=== PATIENT | male | born 1955 ===

== ENCOUNTER 2019-01-19 21:38 | Emergency (ER) | payer OTHER ==
[~2019-01-19] VITALS: Ht 170.2 cm; Wt 68.0 kg
--- NOTE | 2019-01-19 21:55 | NUR ---
ED Nurse Note: Pt from home, AAOx4, ambulatory, c/o SOB for 1.5 months. Pt stated he has used a friend's inhaler but symptoms got worse. VSS. Will assess and carry out ERMD's orders.
[2019-01-19 22:00] VITALS: BP 169/121
--- NOTE | 2019-01-19 22:23 | Emergency Room Report ---
History of Present Illness General Chief Complaint: Dyspnea/Respdistress Source: Patient Present Illness HPI Patient is a 63-year-old male presented after increased difficulty with breathing. Patient gradual onset of symptoms. He reports having increased shortness of breath. He had been a smoker and quit 10 days ago. He had increased non productive cough. He denies any leg pain or swelling. He had not been having any fever. He had been taking an inhaler without any relief. Patient does not see a primary care regularly. Allergies: Coded Allergies: No Known Allergies (Unverified , 01/19/19) Patient History Past Medical History: see triage record Reviewed Nursing Documentation: PMH: Agreed; PSxH: Agreed Nursing Documentation-PMH Past Medical History: No Stated History Review of Systems All Other Systems: negative except mentioned in HPI Physical Exam Vital Signs Date Time Temp Pulse Resp B/P (MAP) Pulse Ox O2 Delivery O2 Flow Rate FiO2 01/19/19 21:49 98.2 102 19 91 Room Air Sp02 EP Interpretation: reviewed, normal General Appearance: normal inspection, well appearing, no apparent distress, alert, GCS 15, Chronically Ill Head: atraumatic ENT: normal ENT inspection, hearing grossly normal, normal voice Neck: normal inspection, full range of motion, supple, no bony tend Respiratory: normal inspection, no retraction, wheezing Cardiovascular #1: regular rate, rhythm, no edema Gastrointestinal: normal inspection, normal bowel sounds, non tender, soft, no guarding, no hernia Genitourinary: no CVA tenderness Musculoskeletal: normal inspection, back normal, normal range of motion Neurologic: normal inspection, alert, oriented x3, responsive, 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 Differential included but was not limited to anemia, pneumonia, pneumothorax, myocardial infarction, pericardial effusion, congestive heart failure, acidosis. Because of complexity of patient' s case laboratory testing and imaging studies were ordered.Laboratory testing was unremarkable. Patient was given breathing treatments. He was also given IV steroids. EKG interpreted by me showed normal sinus rhythm with a rate of [address] or T wave changes. Patient was given aspirin as well as breathing treatment. He was given hydralazine for hypertension. Labs Test 01/19/19 22:23 01/19/19 22:50 01/19/19 23:30 Arterial Blood pH 7.441 (7.350-7.450) Arterial Blood Partial Pressure CO2 43.1 mmHg (35.0-45.0) Arterial Blood Partial Pressure O2 65.9 mmHg (75.0-100.0) Arterial Blood HCO3 28.7 mmol/L (22.0-26.0) Arterial Blood Oxygen Saturation 93.7 % (95-100) Arterial Blood Base Excess 4.0 (-2-2) Jg Test Positive White Blood Count 9.2 K/UL (4.8-10.8) Red Blood Count 5.11 M/UL (4.70-6.10) Hemoglobin 15.4 G/DL (14.2-18.0) Hematocrit 45.0 % (42.0-52.0) Mean Corpuscular Volume 88 FL (80-99) Mean Corpuscular Hemoglobin 30.2 PG (27.0-31.0) Mean Corpuscular Hemoglobin Concent 34.3 G/DL (32.0-36.0) Red Cell Distribution Width 11.6 % (11.6-14.8) Platelet Count 184 K/UL (150-450) Mean Platelet Volume 6.4 FL (6.5-10.1) Neutrophils (%) (Auto) 54.6 % (45.0-75.0) Lymphocytes (%) (Auto) 28.4 % (20.0-45.0) Monocytes (%) (Auto) 8.8 % (1.0-10.0) Eosinophils (%) (Auto) 7.5 % (0.0-3.0) Basophils (%) (Auto) 0.7 % (0.0-2.0) Sodium Level 139 MMOL/L (136-145) Potassium Level 3.6 MMOL/L (3.5-5.1) Chloride Level 102 MMOL/L (98-107) Carbon Dioxide Level 30 MMOL/L (21-32) Anion Gap 7 mmol/L (5-15) Blood Urea Nitrogen 15 mg/dL (7-18) Creatinine 1.0 MG/DL (0.55-1.30) Estimat Glomerular Filtration Rate > 60 mL/min (>60) Glucose Level 124 MG/DL (74-106) Lactic Acid Level 1.10 mmol/L (0.4-2.0) Calcium Level 9.0 MG/DL (8.5-10.1) Phosphorus Level 3.1 MG/DL (2.5-4.9) Magnesium Level 1.8 MG/DL (1.8-2.4) Total Bilirubin 0.6 MG/DL (0.2-1.0) Aspartate Amino Transf (AST/SGOT) 19 U/L (15-37) Alanine Aminotransferase (ALT/SGPT) 28 U/L (12-78) Alkaline Phosphatase 76 U/L (46-116) Total Creatine Kinase 93 U/L (26-308) Creatine Kinase MB 2.1 NG/ML (0.0-3.6) Creatine Kinase MB Relative Index 2.2 Troponin I 0.002 ng/mL (0.000-0.056) Total Protein 7.4 G/DL (6.4-8.2) Albumin 3.5 G/DL (3.4-5.0) Globulin 3.9 g/dL Albumin/Globulin Ratio 0.9 (1.0-2.7) Urine Color Yellow Urine Appearance Clear Urine pH 5 (4.5-8.0) Urine Specific [place] 1.025 (1.005-1.035) Urine Protein 3+ (NEGATIVE) Urine Glucose (UA) Negative (NEGATIVE) Urine Ketones 1+ (NEGATIVE) Urine Blood 4+ (NEGATIVE) Urine Nitrite Negative (NEGATIVE) Urine Bilirubin Negative (NEGATIVE) Urine Urobilinogen Normal MG/DL (0.0-1.0) Urine Leukocyte Esterase 1+ (NEGATIVE) Urine RBC 10-15 /HPF (0 - 0) Urine WBC 0-2 /HPF (0 - 0) Urine Squamous Epithelial Cells Occasional /LPF Urine Amorphous Sediment Occasional /LPF (NONE) Urine Bacteria Few /HPF (NONE) Urine Mucus Few /LPF (NONE/OCC) Last Vital Signs Date Time Temp Pulse Resp B/P (MAP) Pulse Ox O2 Delivery O2 Flow Rate FiO2 01/19/19 21:49 98.2 102 19 91 Room Air Status: unchanged Disposition: ADMITTED INPATIENT Condition: Serious Efra Blake MD January 19, 2019 22:23
[2019-01-19] MEDS ORDERED: Albuterol/Ipratropium 3ml neb HHN ONE ×2 (22:30→23:00)
[2019-01-19] MEDS ORDERED: Solu-MEDROL 125mg Inj IVP ONE (22:30)
[2019-01-19 23:26] LABS: BASOPHILS % (AUTO) 0.7 % (0.0-2.0); EOSINOPHILS % (AUTO) 7.5 % (0.0-3.0); HEMOGLOBIN 15.4 G/DL (14.2-18.0); LYMPHOCYTES % (AUTO) 28.4 % (20.0-45.0); MEAN CORPUSCULAR VOLUME 88 FL (80-99); MONOCYTES % (AUTO) 8.8 % (1.0-10.0); NEUTROPHILS % (AUTO) 54.6 % (45.0-75.0); PLATELET COUNT 184 K/UL (150-450); RED BLOOD COUNT 5.11 M/UL (4.70-6.10); RED CELL DISTRIBUTION WIDTH 11.6 % (11.6-14.8); WHITE BLOOD COUNT 9.2 K/UL (4.8-10.8)
[2019-01-19 23:30] VITALS: BP 172/100
[2019-01-19 23:37] LABS: ANION GAP 7 mmol/L (5-15); BLOOD UREA NITROGEN 15 mg/dL (7-18); CARBON DIOXIDE 30 MMOL/L (21-32); CHLORIDE 102 MMOL/L (98-107); POTASSIUM 3.6 MMOL/L (3.5-5.1); SODIUM 139 MMOL/L (136-145)
[2019-01-19 23:48] LABS: APPEARANCE,URINE CLEAR; BILIRUBIN, URINE NEGATIVE (NEGATIVE); COLOR,URINE YELLOW; GLUCOSE, URINE (UA) NEGATIVE (NEGATIVE); KETONES,URINE 1+ (NEGATIVE); LEUKOCYTE ESTERASE ,URINE 1+ (NEGATIVE); NITRITE,URINE NEGATIVE (NEGATIVE); PH,URINE 5 (4.5-8.0); PROTEIN,URINE 3+ (NEGATIVE); UROBILINOGEN,URINE NORMAL MG/DL (0.0-1.0)
--- NOTE | 2019-01-20 00:03 | NUR ---
ED Nurse Note: Pt in bed resting. Pt's needs met. Will continue to monitor.
[2019-01-20 00:04] LABS: ALANINE AMINOTRANSFERASE 28 U/L (12-78); ALBUMIN 3.5 G/DL (3.4-5.0); ALBUMIN/GLOBULIN RATIO 0.9 (1.0-2.7); ALKALINE PHOSPHATASE 76 U/L (46-116); ASPARTATE AMINO TRANSFERASE 19 U/L (15-37); BILIRUBIN,TOTAL 0.6 MG/DL (0.2-1.0); CKMB 2.1 NG/ML (0.0-3.6); CREATINE KINASE 93 U/L (26-308); PHOSPHORUS 3.1 MG/DL (2.5-4.9)
[2019-01-20 01:30] VITALS: BP 170/94
[2019-01-20 02:30] VITALS: BP 179/124
--- NOTE | 2019-01-20 02:33 | NUR ---
ED Nurse Note: Gave report to Mikhail RN over telephone at [facility]. Pt going to room 202 with ETA at 0330 for pickup by [facility]. Awaiting transport arrival. Pt notified.
[2019-01-20] MEDS ORDERED: Albuterol/Ipratropium 3ml neb HHN ONE (02:45)
[2019-01-20 03:30] VITALS: BP 161/89
--- NOTE | 2019-01-20 04:02 | NUR ---
ED Nurse Note: Pt cleared by health care Provider for transfer to [facility]. Transfer instructions was given and explained to ambulance personnel. Pt is AAO x4, ambulatory and left with all personal belongings on gurney. CN aware.
--- NOTE | 2019-01-20 12:19 | Diagnostic Imaging Report ---
Indication: Dyspnea Comparison: None A single view chest radiograph was obtained. Findings: Cardiomediastinal appearance is within normal limits for age. The lungs are clear. Pulmonary vascularity is appropriate. The diaphragmatic contour is smooth and costophrenic angles are sharp. No pleural effusions are identified. The bones are unremarkable. Impression: No acute findings
--- NOTE | 2019-01-20 14:17 | Cardiology Report ---
APPROVED REPORT EKG Measurement Heart [id number] Normal sinus rhythm Nonspecific T wave abnormality Abnormal ECG
== END 2019-01-20 04:03 | disposition other institution (70) ==
LOC: EMR 22:27
DX: J44.9 Chronic obstructive pulmonary disease, unspecified (principal); I10 Essential (primary) hypertension; Z87.891 Personal history of nicotine dependence; R05 Cough
CPT/HCPCS: 36415; 36600; 71045; 80053; 81003; 82550; 82553; 82803; 83605; 83735; 84100; 84484; 85025; 87040; 93005; 94640; 94664; 96365; 96375; 99284; J0360; J2930; J7620